=== PATIENT | male | born 1935 | race Native Hawaiian/Other Pacific Islander ===

== ENCOUNTER 2018-03-28 10:04 | Outpatient (CLI) | payer OTHER ==
[2018-03-28 10:39] LABS: PLATELET COUNT 255 K/uL (142-355)
[2018-03-28 10:55] LABS: POTASSIUM 4.3 mmol/L (3.6-5.2)
== END 2018-03-28 21:00 | disposition home or self-care (01) ==
LOC: LABW 10:04
PROVIDERS: Internal Medicine
DX: K59.00 Constipation, unspecified (principal); Z79.899 Other long term (current) drug therapy
CPT/HCPCS: 36415; 80053; 80061; 81000; 84439; 84443; 85027

== ENCOUNTER 2018-04-06 10:16 | Outpatient (CLI) | payer OTHER | END 2018-04-06 19:33 | disposition home or self-care (01) | LOC: LABW 10:16 | DX: R77.8 Other specified abnormalities of plasma proteins (principal); R73.9 Hyperglycemia, unspecified | CPT/HCPCS: 36415; 83036; 84165 ==

== ENCOUNTER 2019-02-20 09:41 | Outpatient (CLI) | payer OTHER ==
[2019-02-20 09:58] LABS: PLATELET COUNT 270 K/uL (142-355)
[2019-02-20 10:22] LABS: POTASSIUM 4.5 mmol/L (3.6-5.2)
== END 2019-02-20 23:59 ==
LOC: LABW 09:41
PROVIDERS: Internal Medicine
DX: E03.8 Other specified hypothyroidism (principal); E78.00 Pure hypercholesterolemia, unspecified
CPT/HCPCS: 36415; 80053; 80061; 81000; 84439; 84443; 85027

== ENCOUNTER 2019-06-06 08:59 | Outpatient (CLI) | payer OTHER ==
[2019-06-06 09:56] LABS: PLATELET COUNT 277 K/uL (142-355)
[2019-06-06 10:20] LABS: POTASSIUM 4.2 mmol/L (3.6-5.2)
== END 2019-06-06 19:49 | disposition home or self-care (01) ==
LOC: LABW 08:59
PROVIDERS: Internal Medicine
DX: E03.8 Other specified hypothyroidism (principal); E78.00 Pure hypercholesterolemia, unspecified
CPT/HCPCS: 36415; 80053; 80061; 84439; 84443; 85027

== ENCOUNTER 2019-06-17 11:15 | Outpatient (CLI) | payer OTHER | END 2019-06-17 23:09 | disposition home or self-care (01) | LOC: US 11:15 | DX: H81.8X9 Other disorders of vestibular function, unspecified ear (principal) ==

== ENCOUNTER 2020-01-08 11:06 | Outpatient (CLI) | payer OTHER ==
[2020-01-08 12:29] LABS: PLATELET COUNT 271 K/uL (142-355)
[2020-01-08 12:38] LABS: POTASSIUM 4.6 mmol/L (3.6-5.2)
== END 2020-01-08 21:32 | disposition home or self-care (01) ==
LOC: LAB 11:06
PROVIDERS: Internal Medicine
DX: E03.8 Other specified hypothyroidism (principal); R73.9 Hyperglycemia, unspecified; E78.00 Pure hypercholesterolemia, unspecified
CPT/HCPCS: 80053; 80061; 81000; 84439; 84443; 85027

== ENCOUNTER 2020-07-29 09:56 | Outpatient (CLI) | payer OTHER ==
[2020-07-29 10:14] LABS: PLATELET COUNT 272 K/uL (142-355)
== END 2020-07-29 21:50 | disposition home or self-care (01) ==
LOC: LAB 09:56
PROVIDERS: ATTEND Internal Medicine
DX: E03.8 Other specified hypothyroidism (principal); E78.00 Pure hypercholesterolemia, unspecified; R39.81 Functional urinary incontinence; N40.0 Benign prostatic hyperplasia without lower urinary tract symptoms
CPT/HCPCS: 80053; 80061; 84153; 84439; 84443; 85027

== ENCOUNTER 2021-11-04 12:16 | Outpatient (CLI) | payer OTHER ==
[2021-11-04 12:49] LABS: PLATELET COUNT 257 K/uL (142-355)
[2021-11-04 13:04] LABS: POTASSIUM 4.3 mmol/L (3.6-5.2)
== END 2021-11-04 19:34 | disposition home or self-care (01) ==
LOC: LAB 12:16
PROVIDERS: ATTEND Internal Medicine
DX: E03.8 Other specified hypothyroidism (principal); Z12.5 Encounter for screening for malignant neoplasm of prostate; N40.0 Benign prostatic hyperplasia without lower urinary tract symptoms
CPT/HCPCS: 80053; 80061; 81000; 84153; 84439; 84443; 85027

== ENCOUNTER 2022-09-28 13:22 | Outpatient (CLI) | payer OTHER ==
[2022-09-28 14:05] LABS: PLATELET COUNT 267 K/uL (142-355)
[2022-09-28 14:16] LABS: POTASSIUM 4.4 mmol/L (3.6-5.2)
== END 2022-09-28 19:27 | disposition home or self-care (01) ==
LOC: LAB 13:22
PROVIDERS: ATTEND Internal Medicine
DX: E03.8 Other specified hypothyroidism (principal); Z12.5 Encounter for screening for malignant neoplasm of prostate; N40.0 Benign prostatic hyperplasia without lower urinary tract symptoms
CPT/HCPCS: 80053; 80061; 84153; 84439; 84443; 85027